=== PATIENT | male | born 1995 | race Caucasian/White ===

== ENCOUNTER 2025-08-22 09:39 | Emergency (ER) | payer OTHER, SELFPAY ==
[~2025-08-22] VITALS: Ht 182.9 cm; Wt 79.4 kg
[2025-08-22] MEDS ORDERED: TETRACAINE HCL ONE (09:44)
[2025-08-22] MEDS ORDERED: FUL-GLO OP ONE (09:44)
[2025-08-22 10:07] VITALS: BP 133/63; PULSE 85; RESP 16; TEMP 97.8; O2SAT 97
== END 2025-08-22 10:15 | disposition home or self-care (01) ==
LOC: ER 09:39
DX: T15.92XA Foreign body on external eye, part unspecified, left eye, initial encounter (principal); J45.909 Unspecified asthma, uncomplicated; W44.8XXA Other foreign body entering into or through a natural orifice, initial encounter; Y93.89 Activity, other specified; Y92.89 Other specified places as the place of occurrence of the external cause; Y99.8 Other external cause status
CPT/HCPCS: 99284